=== PATIENT | female | born 2000 | race Caucasian/White ===

== ENCOUNTER 2022-10-29 12:11 | Emergency (ER) | payer MEDICAID ==
[~2022-10-29] VITALS: Ht 167.6 cm; Wt 100.0 kg
[2022-10-29 12:18] VITALS: BP 139/88
== END 2022-10-29 14:16 | disposition left against medical advice (07) ==
LOC: ER 12:11
DX: Z53.21 Procedure and treatment not carried out due to patient leaving prior to being seen by health care provider (principal)

== ENCOUNTER 2023-09-02 12:27 | Emergency (ER) | payer MEDICAID ==
[~2023-09-02] VITALS: Ht 165.1 cm; Wt 77.0 kg
[2023-09-02 12:33] VITALS: BP 137/82; RESP 20; TEMP 99; O2SAT 97
[2023-09-02 12:36] VITALS: PULSE 139
[2023-09-02] MEDS ORDERED: SODIUM CHLORIDE 0.9% 1,000 ML IV ONE (14:30)
[2023-09-02] MEDS ORDERED: METOCLOPRAMIDE HCL 10MG/2ML VIAL IV ONE (15:00)
[2023-09-02] MEDS ORDERED: KETOROLAC 15MG/ML VIAL IV ONE (15:00)
[2023-09-02 15:32] LABS: BASOPHILS % 0.2 % (0.0-2.0); EOSINOPHILS % 0.1 % (0.0-5.0); HEMATOCRIT. 42.1 % (36.0-48.0); HEMOGLOBIN. 14.2 g/dL (12.0-16.0); LYMPHOCYTES % 7.9 % (20.0-50.0); MEAN CORPUSCULAR HEMOGLOBIN 31.5 pg (28.0-32.0); MEAN CORPUSCULAR HGB CONC 33.8 g/dL (31.0-37.0); MEAN CORPUSCULAR VOLUME 93.2 fL (81.0-99.0); MEAN PLATELET VOLUME 8.2 fl (7.4-10.4); MONOCYTES % 6.8 % (2.0-8.0); PLATELET 391 x1000/uL (130-400); RED BLOOD CELL COUNT 4.52 mill/uL (4.2-5.4); RED CELL DISTRIBUTION WIDTH 12.8 % (11.6-14.6); WHITE BLOOD COUNT 14.6 x1000/uL (4.5-11.0)
[2023-09-02 15:36] LABS: INR 1.2; PROTHROMBIN TIME 12.4 sec (9.6-11.0)
[2023-09-02 15:43] LABS: ALANINE AMINOTRANSFERASE 26 IU/L (10-49); ALBUMIN 4.3 g/dL (3.2-4.8); ASPARTATE AMINOTRANSFERASE 17 IU/L (<34); BILIRUBIN TOTAL 0.6 mg/dL (0.1-1.0); CALCIUM 9.3 mg/dL (8.7-10.4); CARBON DIOXIDE 27 mEq/L (21-32); CHLORIDE 100 mEq/L (98-107); CREATININE 0.6 mg/dL (0.6-1.0); GLUCOSE 105 mg/dL (70-105); POTASSIUM 3.5 mEq/L (3.5-5.1); PROTEIN TOTAL 7.2 g/dL (6.0-8.3); SODIUM 132 mEq/L (136-145)
[2023-09-02 15:46] LABS: TROPONIN I HIGH SENSITIVITY < 4 ng/L (3.0-34); UREA NITROGEN BLOOD < 5 mg/dL (9-23)
[2023-09-02] MEDS ORDERED: BENZ1LOZ73 MT (16:39)
[2023-09-02] MEDS ORDERED: NAPR-681 MT (16:39)
[2023-09-02] MEDS ORDERED: DEXAMETHASONE 4MG/ML 1ML VIAL IV SCH (18:00)
== END 2023-09-02 18:01 | disposition home or self-care (01) ==
LOC: ER 12:27
DX: J02.9 Acute pharyngitis, unspecified (principal); Z20.822 Contact with and (suspected) exposure to COVID-19
CPT/HCPCS: 99285; 71045; 87426; 80053; 87430; 85025; 85610; 86850; 86900; 86901; 84484; 87070; 87804 ×2; 36415; 93005; J7030; C9803